=== PATIENT | male | born 1955 ===

== ENCOUNTER → 2017-08-24 | Outpatient (CLI) | payer OTHER ==
[~2017-08-24] MED LIST: AVAPRO300 MG PO; DICLOFENAC POTA50 MG PO; LOSARTAN POTAS100 MG; LOSARTAN POTAS100 MG PO; LOSARTAN POTASS50 MG; LOSARTAN POTASS50 MG PO
== END | disposition home or self-care (01) ==
LOC: PPH VACUNA 15:31
DX: Z23 Encounter for immunization (principal)

== ENCOUNTER 2018-03-02 07:48 | Outpatient (CLI) | payer OTHER | END 2018-03-02 08:01 | disposition home or self-care (01) | LOC: LAB 07:48 | DX: E78.2 Mixed hyperlipidemia (principal); I11.9 Hypertensive heart disease without heart failure; R73.02 Impaired glucose tolerance (oral) ==

== ENCOUNTER 2018-03-31 10:31 | Outpatient (CLI) | payer OTHER | END 2018-03-31 10:36 | disposition home or self-care (01) | LOC: LAB 10:31 | DX: N40.0 Benign prostatic hyperplasia without lower urinary tract symptoms (principal) ==

== ENCOUNTER 2018-09-19 08:01 | Outpatient (CLI) | payer OTHER | END 2018-09-19 08:05 | disposition home or self-care (01) | LOC: SONOGRAMA 08:01 → MAMO-SONO 09:15 | DX: R59.0 Localized enlarged lymph nodes (principal) ==

== ENCOUNTER 2018-09-22 11:17 | Outpatient (CLI) | payer OTHER ==
[~2018-09-22] VITALS: Ht 182.9 cm; Wt 102.1 kg
== END 2018-09-22 11:35 | disposition home or self-care (01) ==
LOC: OFIC 805 11:17
DX: R07.0 Pain in throat (principal); H93.90 Unspecified disorder of ear, unspecified ear; K11.20 Sialoadenitis, unspecified; M54.2 Cervicalgia

== ENCOUNTER 2018-11-04 10:03 | Outpatient (CLI) | payer OTHER | END 2018-11-04 10:16 | disposition home or self-care (01) | LOC: LAB 10:03 | DX: N40.1 Benign prostatic hyperplasia with lower urinary tract symptoms (principal) ==

== ENCOUNTER 2018-11-28 09:00 | Outpatient (CLI) | payer OTHER ==
[~2018-11-28] VITALS: Ht 182.9 cm; Wt 99.8 kg
== END 2018-11-28 09:20 | disposition home or self-care (01) ==
LOC: OFIC 805 09:00
DX: R07.0 Pain in throat (principal); H93.90 Unspecified disorder of ear, unspecified ear; K11.20 Sialoadenitis, unspecified; M54.2 Cervicalgia

== ENCOUNTER 2018-12-30 08:07 | Outpatient (CLI) | payer OTHER | END 2018-12-30 08:17 | disposition home or self-care (01) | LOC: SONOGRAMA 08:07 → MAMO-SONO 08:45 | DX: R22.1 Localized swelling, mass and lump, neck (principal) ==

== ENCOUNTER 2019-01-12 10:07 | Outpatient (CLI) | payer OTHER ==
[~2019-01-12] VITALS: Ht 182.9 cm; Wt 102.1 kg
== END 2019-01-12 10:20 | disposition home or self-care (01) ==
LOC: OFIC 805 10:07
DX: K11.20 Sialoadenitis, unspecified (principal); M54.2 Cervicalgia; K20.8 Other esophagitis; R49.0 Dysphonia

== ENCOUNTER 2019-03-28 08:20 | Outpatient (CLI) | payer OTHER ==
[~2019-03-28] VITALS: Ht 182.9 cm; Wt 102.1 kg
== END 2019-03-28 10:19 | disposition home or self-care (01) ==
LOC: OFIC 805 08:20
DX: H92.09 Otalgia, unspecified ear (principal); H93.13 Tinnitus, bilateral; H93.232 Hyperacusis, left ear

== ENCOUNTER → 2019-05-08 07:10 | Outpatient (CLI) | payer OTHER | END | disposition home or self-care (01) | LOC: LAB 07:10 | DX: D64.89 Other specified anemias (principal); N39.0 Urinary tract infection, site not specified; R10.84 Generalized abdominal pain; E03.8 Other specified hypothyroidism; E78.49 Other hyperlipidemia; E55.9 Vitamin D deficiency, unspecified; R73.09 Other abnormal glucose; I10 Essential (primary) hypertension; Z12.5 Encounter for screening for malignant neoplasm of prostate ==

== ENCOUNTER 2019-06-15 12:24 | Outpatient (CLI) | payer OTHER | END 2019-06-15 16:40 | disposition home or self-care (01) | LOC: LAB 12:24 | DX: B35.1 Tinea unguium (principal) ==

== ENCOUNTER → 2019-06-20 10:35 | Outpatient (CLI) | payer OTHER | END | disposition home or self-care (01) | LOC: LAB 10:35 | DX: J11.1 Influenza due to unidentified influenza virus with other respiratory manifestations (principal); R05 Cough ==

== ENCOUNTER → 2019-07-18 08:04 | Outpatient (CLI) | payer OTHER | END | disposition home or self-care (01) | LOC: LAB 08:04 | DX: D64.89 Other specified anemias (principal); I10 Essential (primary) hypertension; B35.1 Tinea unguium; R10.84 Generalized abdominal pain ==

== ENCOUNTER → 2019-08-28 12:08 | Outpatient (CLI) | payer OTHER | END | disposition home or self-care (01) | LOC: LAB 12:08 | DX: B35.1 Tinea unguium (principal) ==

== ENCOUNTER 2020-03-14 09:47 | Outpatient (CLI) | payer OTHER | END 2020-03-14 10:01 | disposition home or self-care (01) | LOC: NUCLEAR 09:47 | DX: I70.213 Atherosclerosis of native arteries of extremities with intermittent claudication, bilateral legs (principal) ==

== ENCOUNTER → 2020-06-01 07:29 | Outpatient (CLI) | payer OTHER | END | disposition home or self-care (01) | LOC: LAB 07:29 | PROVIDERS: ATTEND Internal Medicine Cardiovascular Disease | DX: D64.89 Other specified anemias (principal); N40.0 Benign prostatic hyperplasia without lower urinary tract symptoms; Z12.5 Encounter for screening for malignant neoplasm of prostate; I10 Essential (primary) hypertension; E78.49 Other hyperlipidemia; N39.0 Urinary tract infection, site not specified; E03.8 Other specified hypothyroidism; E11.9 Type 2 diabetes mellitus without complications; R10.84 Generalized abdominal pain ==

== ENCOUNTER 2020-07-08 13:45 | Outpatient (CLI) | payer OTHER | END 2020-07-08 13:55 | disposition home or self-care (01) | LOC: MRI 13:45 | PROVIDERS: ATTEND Physical Medicine & Rehabilitation | DX: M41.85 Other forms of scoliosis, thoracolumbar region (principal); M54.6 Pain in thoracic spine; M54.5 Low back pain; M54.16 Radiculopathy, lumbar region | CPT/HCPCS: 72148 ==

== ENCOUNTER 2020-10-03 08:21 | Outpatient (CLI) | payer OTHER | END 2020-10-03 08:26 | disposition home or self-care (01) | LOC: LAB 08:21 | PROVIDERS: ATTEND Internal Medicine Cardiovascular Disease | DX: I10 Essential (primary) hypertension (principal); R06.00 Dyspnea, unspecified ==

== ENCOUNTER → 2021-02-11 06:48 | Outpatient (CLI) | payer OTHER | END | disposition home or self-care (01) | LOC: LAB 06:48 | PROVIDERS: ATTEND Internal Medicine Cardiovascular Disease | DX: R06.09 Other forms of dyspnea (principal); Z13.6 Encounter for screening for cardiovascular disorders ==

== ENCOUNTER → 2021-05-08 | Outpatient (CLI) | payer OTHER | END | disposition home or self-care (01) | LOC: PPH VACUNA 08:30 | PROVIDERS: ATTEND Emergency Medicine Pediatric Emergency Medicine | DX: Z23 Encounter for immunization (principal) ==

== ENCOUNTER 2021-11-26 08:00 | Outpatient (CLI) | payer OTHER | END 2021-11-26 08:30 | disposition home or self-care (01) | LOC: PPH VACUNA 08:00 | PROVIDERS: ATTEND Emergency Medicine Pediatric Emergency Medicine | DX: Z23 Encounter for immunization (principal) ==

== ENCOUNTER 2022-05-25 09:17 | Outpatient (CLI) | payer OTHER | END 2022-05-25 09:21 | disposition home or self-care (01) | LOC: LAB 09:17 | PROVIDERS: ATTEND Internal Medicine Cardiovascular Disease | DX: D64.9 Anemia, unspecified (principal); R10.9 Unspecified abdominal pain; R78.5 Finding of other psychotropic drug in blood; E11.9 Type 2 diabetes mellitus without complications; N40.0 Benign prostatic hyperplasia without lower urinary tract symptoms; Z12.5 Encounter for screening for malignant neoplasm of prostate ==

== ENCOUNTER 2024-11-06 11:02 | Outpatient (CLI) | payer OTHER | END 2024-11-06 11:10 | disposition home or self-care (01) | LOC: MRI 11:02 | PROVIDERS: ATTEND Orthopaedic Surgery | DX: M25.562 Pain in left knee (principal) | CPT/HCPCS: 73721 ==